=== PATIENT | male | born 1980 | race Hispanic/Latino ===

== ENCOUNTER 2017-12-17 12:46 | Emergency (ER) | payer OTHER ==
[~2017-12-17 12:46] MED LIST: SERTRALINE HYDR25 MG PO
[2017-12-17 13:07] LABS: ABSOLUTE BASOPHIL COUNT 0 /CUMM (0.0-0.2); ABSOLUTE EOSINOPHIL COUNT 0.2 /CUMM (0.0-0.7); ABSOLUTE LYMPH COUNT 1.6 /CUMM (1.2-3.4); ABSOLUTE MONOCYTE COUNT 0.3 /CUMM (0.10-0.60); BASOPHIL % 0.7 % (0.0-2.0); EOSINOPHIL % 5.5 % (0-5); GRANULOCYTE % 31.5 % (42.2-75.2); HEMATOCRIT 40.3 % (42-52); MEAN CORPUSCULAR HGB 28.7 PG (27.0-31.0); MEAN CORPUSCULAR HGB CONC 35.3 G/DL (33.0-37.0); MEAN CORPUSCULAR VOLUME 81.2 FL (80.0-94.0); PLATELET COUNT 293 /CUMM (130-400); RBC DISTRIBUTION WIDTH 13.5 % (11.5-14.5); RED BLOOD CELL CT 4.97 /CUMM (4.70-6.10); WHITE BLOOD CELL COUNT 3.1 /CUMM (4.8-10.8)
--- NOTE | 2017-12-17 16:28 | ED CARDIAC/CP/PALPITATIONS ---
History of Present Illness General Chief Complaint: Chest Pain Stated Complaint: "HAVING IRREGULAR HR AND MY FEET ARE TINGLING" Source: patient Exam Limitations: no limitations Vital Signs & Intake/Output Vital Signs & Intake/Output Vital Signs Date Time Temp Pulse Resp B/P B/P Pulse O2 O2 Flow FiO2 Mean Ox Delivery Rate 12/17 1257 98.1 83 17 156/98 99 Room Air Allergies Coded Allergies: NO KNOWN ALLERGIES (12/25/13) Reconcile Medications SERTRALINE HCL (Sertraline Hydrochloride) 25 MG TABLET 1 TAB PO DAILY DEPRESSION (Reported) Triage Note: PT TO ED WITH C/O PALPITATIONS SINCE YESTERDAY. DENIES CP, SOB. Triage Nurses Notes Reviewed? yes Onset: Gradual Duration: day(s): Timing: recent history Quality/Severity: moderate HPI: 37-year-old male presents emergency department complaining of palpitations for the past few days. Patient states he has had palpitations in the past, he has been told they were related to anxiety. Patient states that he stopped his anxiety medication about one month ago and is unsure if this is related. Patient also reports paresthesias of bilateral feet associated with his palpitations. Patient denies chest pain, dyspnea, recent travel, hemoptysis. Past History Travel History Traveled to [place] past 21 day No Medical History Any Pertinent Medical History? 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 No Review of Systems Review of Systems Constitutional: Reports: no symptoms. EENTM: Reports: no symptoms. Respiratory: Reports: no symptoms. Cardiovascular: Reports: see HPI. GI: Reports: no symptoms. Genitourinary: Reports: no symptoms. Musculoskeletal: Reports: no symptoms. Skin: Reports: no symptoms. Neurological/Psychological: Reports: see HPI. Hematologic/Endocrine: Reports: no symptoms. Immunologic/Allergic: Reports: no symptoms. All Other Systems: Reviewed and Negative Physical Exam Physical Exam General Appearance: well developed/nourished, no apparent distress, alert, awake Head: atraumatic, normal appearance Eyes: Bilateral: normal appearance. Ears, Nose, Throat: hearing grossly normal Neck: normal inspection, supple, full range of motion Respiratory: normal breath sounds, chest non-tender, no respiratory distress, lungs clear Cardiovascular: regular rate/rhythm, normal peripheral pulses Peripheral Pulses: 2+ radial (R), 2+ radial (L) Gastrointestinal: normal bowel sounds, soft, non-tender, no organomegaly Back: normal inspection, normal range of motion Extremities: normal inspection, normal range of motion Neurologic/Psych: awake, alert, oriented x 3 Skin: intact, normal color, warm/dry Core Measures ACS in differential dx? Yes CVA/TIA Diagnosis No Sepsis Present: No Sepsis Focused Exam Completed? No All Positive = PERC Ruled Out: Positive: age < 50 years, heart rate < 100 bpm, O2 sat > 94%, no hemoptysis, no hormone use, no prior DVT or PE, no unilateral leg swellin, no surgery/trauma w/ in 4w. Progress Differential Diagnosis: AMI, atrial fibrillation, hyperventilation, myocarditis, pericarditis, pulmonary embolism Plan of Care: Orders Procedure Date/time Status TROPONIN LEVEL 12/17 1255 Complete COMPREHENSIVE METABOLIC PANEL 12/17 1255 Complete CBC WITHOUT DIFFERENTIAL 12/17 1255 Complete EKG 12/17 1249 Active Laboratory Tests 12/17/17 1257: Anion Gap 14, Estimated GFR > 60, BUN/Creatinine Ratio 15.0, Glucose 110 H, Calcium 9.8, Total Bilirubin 0.4, AST 38, ALT 75 H, Alkaline Phosphatase 42, Troponin I < 0.01, Total Protein 8.1, Albumin 4.7, Globulin 3.4, Albumin/ Globulin Ratio 1.4, CBC w Diff NO MAN DIFF REQ, RBC 4.97, MCV 81.2, MCH 28.7, MCHC 35.3, RDW 13.5, MPV 8.0, Gran % 31.5 L, Lymphocytes % 52.1 H, Monocytes % 10.2 H, Eosinophils % 5.5 H, Basophils % 0.7, Absolute Granulocytes 1.0 L, Absolute Lymphocytes 1.6, Absolute Monocytes 0.3, Absolute Eosinophils 0.2, Absolute Basophils 0 Patient's EKG is in sinus rhythm without acute ischemic changes. His labs are stable, non-actionable. Troponin enzyme is negative. Patient is perc negative. Patient has clear breath sounds bilaterally. He has no chest pain. The patient has no shortness of breath. Patient is young without cardiac risk factors. Symptoms have been present for over 24 hours. Low suspicion for acute cardiac pathology based on this patient's presentation. The patient has not had any chest pain associated with his palpitations. I referred the patient to a senior controls technician for further evaluation. He is in no acute distress, vital signs stable. The patient agrees with the plan of care. The patient was given strict return precautions. Initial ED EKG: normal sinus rhythm Departure Departure Disposition: HOME OR SELF CARE Condition: Stable Clinical Impression Primary Impression: Heart palpitations Referrals: Inocente Velez MD (PCP/Family) Carroll Lopez MD Additional Instructions: Follow up with the senior controls technician regarding your heart palpations. Return with any worsening symptoms or concerns including chest pain, shortness of breath, abdominal pain. Departure Forms: Customer Survey General Discharge Information Critical Care Note Critical Care Note Critical Care Time: non-applicable
[2017-12-17 16:38] VITALS: BP 146/86
[2017-12-20] MEDS ORDERED: MULTIVITAMINS1 EAC9 PO (21:05)
[2017-12-20] MEDS ORDERED: SERTRALINE HCL25 MG PO (21:05)
[2017-12-20] MEDS ORDERED: CO Q-10100 MG PO (21:05)
== END 2017-12-17 16:38 ==
LOC: ERH 12:46
PROVIDERS: Emergency Medicine
DX: R00.2 Palpitations (principal); R20.2 Paresthesia of skin
CPT/HCPCS: 93005; 93010